=== PATIENT | male | born 1980 | race Two or more races ===

== ENCOUNTER 2023-02-27 12:12 | Day surgery (SDC) | payer BC ==
[~2023-02-27] VITALS: Ht 180.3 cm; Wt 87.5 kg
[~2023-02-27 12:12] MED LIST: CLON0.25 PO; CYAN1000VL IM; NS 1,000 ML IV ONE; OMEP-173 PO; SILD20TA50 PO
[2023-02-27] MEDS ORDERED: LIDOCAINE 2% 100MG/5ML SDV (FOR ANES.) As Ordered ONE (14:42)
[2023-02-27] MEDS ORDERED: propofoL 200 MG/20 ML VIAL As Ordered ONE (14:42)
[2023-02-27] MEDS ORDERED: fentaNYL 100 MCG/2 ML INJECTION As Ordered ONE (14:42)
[2023-02-27 14:59] VITALS: TEMP 97.4
[2023-02-27 15:23] VITALS: BP 145/85; O2SAT 99
== END 2023-02-27 15:34 | disposition home or self-care (01) ==
LOC: M OPP 12:12
PROVIDERS: ATTEND Internal Medicine Gastroenterology
DX: K29.70 Gastritis, unspecified, without bleeding (principal); K31.89 Other diseases of stomach and duodenum; D51.0 Vitamin B12 deficiency anemia due to intrinsic factor deficiency; R19.7 Diarrhea, unspecified; F17.290 Nicotine dependence, other tobacco product, uncomplicated; Z79.899 Other long term (current) drug therapy; Z88.8 Allergy status to other drugs, medicaments and biological substances; Z91.011 Allergy to milk products; Z91.030 Bee allergy status
CPT/HCPCS: 43239; 88305; J3010